=== PATIENT | male | born 1975 | race American Indian/Alaskan Native ===

== ENCOUNTER 2018-04-07 08:53 | Inpatient (IN) | payer MEDICAID ==
[2018-04-07] MEDS ORDERED: Iohexol 240 (50 ml) PO ONE (09:32)
[2018-04-07] MEDS ORDERED: Iohexol 240 (50 ml) ONE (09:39)
[2018-04-07 09:56] LABS: URINE BILIRUBIN NEGATIVE (NEGATIVE); URINE BLOOD NEGATIVE (NEGATIVE); URINE CLARITY Clear (Clear); URINE COLOR Yellow (YELLOW); URINE GLUCOSE (UA) NORMAL (Normal); URINE LEUKOCYTE ESTERASE NEG Leu/uL (Negative); URINE PROTEIN 1+ mg/dL (NEGATIVE)
[2018-04-07 10:02] LABS: BASO # 0.1 K/uL (0.0-0.2); BASO % 0.5 % (0.0-2.0); EOS % 0.2 % (0.0-4.0); HEMOGLOBIN 14.9 g/dL (12.0-18.0); LYMPH # 1.1 K/uL (1.0-4.3); LYMPH % 7.2 % (20.0-40.0); MEAN CELL VOLUME 88.8 fL (80.0-94.0); MEAN CORPUSCULAR HEMOGLOBIN 29.7 pg (27.0-31.0); MEAN CORPUSCULAR HGB CONC 33.5 g/dL (33.0-37.0); MONO # 1.1 K/uL (0.0-0.8); MONO % 7.2 % (0.0-10.0); NEUT # 13.1 K/uL (1.8-7.0); NEUT % 84.9 % (50.0-75.0); PLATELET COUNT 402 K/uL (130-400); RED CELL DISTRIBUTION WIDTH 13.8 % (11.5-14.5); WHITE BLOOD COUNT 15.4 K/uL (4.8-10.8)
--- NOTE | 2018-04-07 10:08 | C.PDOC ---
History Of Present Illness 42 y/o male pt presents to the ER c/o scrotal and abdominal pain for x10 days. Pt was seen at a hospital last night and was treated with pain medication. Pt was also told he had an infection but does not know the name. Pt was waiting for the pain to get better but it got worse which prompted him to go to [facility]. Pt denies penile discharge, blood in urine, nausea, vomiting, diarrhea and fever. Time Seen by Provider: 04/07/18 09:21 Chief Complaint (Nursing): Groin Pain History Per: Patient History/Exam Limitations: no limitations Onset/Duration Of Symptoms: Days (x10 ) Past Medical History Reviewed: Historical Data, Nursing Documentation, Vital Signs Vital Signs: Last Vital Signs Temp 98.9 F 04/07/18 09:07 Pulse 101 H 04/07/18 09:07 Resp 20 04/07/18 09:07 BP 157/88 H 04/07/18 09:07 Pulse Ox 97 04/07/18 09:07 Family History: States: No Known Family Hx - Social History Hx Alcohol Use: Yes Hx Substance Use: No - Immunization History Hx Tetanus Toxoid Vaccination: No Hx Influenza Vaccination: No Hx Pneumococcal Vaccination: No Review Of Systems Except As Marked, All Systems Reviewed And Found Negative. Constitutional: Negative for: Fever Gastrointestinal: Positive for: Abdominal Pain. Negative for: Nausea, Vomiting, Diarrhea Genitourinary: Positive for: Scrotal Pain. Negative for: Hematuria, Penile Discharge Physical Exam - Physical Exam Appears: Non-toxic, No Acute Distress Skin: Warm, Dry, No Rash Head: Normacephalic Eye(s): bilateral: Normal Inspection Chest: Symmetrical Cardiovascular: Rhythm Regular Respiratory: Normal Breath Sounds Gastrointestinal/Abdominal: Soft, Tenderness (suprapubic ), No Distention, No Guarding, No Rebound Back: No CVA Tenderness Male Genital: No Testicular Tenderness, Other (scrotal tenderness ) Extremity: Normal ROM (x4), No Tenderness, No Calf Tenderness, No Deformity, No Swelling Neurological/Psych: Oriented x3, Normal Speech, Normal Cognition, Normal Motor, Normal Sensation ED Course And Treatment - Laboratory Results Result Diagrams: 04/08/18 11:00 04/08/18 11:00 Lab Results: Urine Color Yellow (YELLOW) 04/07/18 09:48 Urine Clarity Clear (Clear) 04/07/18 09:48 Urine pH 5.0 (5.0-8.0) 04/07/18 09:48 Ur Specific [place] 1.021 (1.003-1.030) 04/07/18 09:48 Urine Protein 1+ mg/dL (NEGATIVE) H 04/07/18 09:48 Urine Glucose (UA) Normal mg/dL (Normal) 04/07/18 09:48 Urine Ketones Negative mg/dL (NEGATIVE) 04/07/18 09:48 Urine Blood Negative (NEGATIVE) 04/07/18 09:48 Urine Nitrate Negative (NEGATIVE) 04/07/18 09:48 Urine Bilirubin Negative (NEGATIVE) 04/07/18 09:48 Urine Urobilinogen 4.0 mg/dL (0.2-1.0) 04/07/18 09:48 Ur Leukocyte Esterase Neg Noemi/uL (Negative) 04/07/18 09:48 Urine WBC (Auto) 2 /hpf (0-5) 04/07/18 09:48 Urine RBC (Auto) 2 /hpf (0-3) 04/07/18 09:48 O2 Sat by Pulse Oximetry: 97 (RA) Pulse Ox Interpretation: Normal - CT Scan/US testicular US Other Rad Studies (CT/US): Read By Radiologist, Radiology Report Reviewed CT/US Interpretation: Accession No. : [id number]. Patient Name / ID : IRAIDA FAUSTIN / [id number]. Exam Date : 04/07/2018 10:19:13 ( Approved ). Study Comment : Sex / Age : M / 42Y. Creator : Luz Ibarra MD. Dictator : Luz Ibarra MD. Virtual Customer Assistant : Call Center Agent : Luz Ibarra MD. Approver2 : Report Date : 04/07/2018 10:42:22. My Comment : . Date of service: 04/07/2018. HISTORY: testicular pain. TECHNIQUE: Realtime sonography through the scrotum with color and doppler flow. COMPARISON: None Available. FINDINGS: RIGHT TESTICLE: Measures 4.1 x 2.3 x 3.2 cm. Homogeneous echotexture. 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 Blood flow is demonstrated. RIGHT EPIDIDYMIS: Unremarkable. LEFT TESTICLE: Measures 4.3 x 1.9 x 3.0 cm. Homogeneous echotexture. Blood flow is demonstrated. LEFT EPIDIDYMIS: Unremarkable. HYDROCELE: Small bilateral, left greater right, complex hydroceles. VARICOCELE: Mild left sided varicocele. OTHER FINDINGS: None. 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 Small bilateral, left greater right, complex hydroceles. Mild left sided varicocele. abd/pelvis CT Other Rad Studies (CT/US): Read By Radiologist, Radiology Report Reviewed CT/US Interpretation: Accession No. : [id number]. Patient Name / ID : IRAIDA FAUSTIN / [id number]. Exam Date : 04/07/2018 11:57:54 ( Approved ). Study Comment : Sex / Age : M / 42Y. Creator : Usha Shultz. Dictator : Gianni De Souza MD. Virtual Customer Assistant : Call Center Agent : Gianni De Souza MD. Approver2 : Report Date : 04/07/2018 12:09:19. My Comment : . Date of service: 2018-04-07 11:57:54. PROCEDURE: CT Abdomen and Pelvis . HISTORY: Abdominal pain. COMPARISON: No prior study available for comparison. TECHNIQUE: Contiguous axial images of the abdomen and pelvis performed following oral and intravenous injection of approximately 100 cc Visipaque 320 contrast material. Additional 2D sagittal and coronal reformats generated. . Radiation dose: Total exam DLP = 1033.2 mGy-cm. This CT exam was performed using one or more of the following dose reduction techniques: Automated exposure control, adjustment of the mA and/or kV according to patient size, and/or use of iterative r econstruction technique. FINDINGS: LOWER THORAX: Lung bases are clear. No infiltrate effusion or basilar pneumothorax. No obvious parenchymal nodule seen the visualized lung bases. Heart size within range of normal. No significant pericardial effusion. There is a tiny hiatal hernia. LIVER: Liver is upper limits of normal measuring over 18 cm in CC dimension. The suspect minor fatty hepatic infiltration. There are several low-attenuation foci seen scattered about the right and left lobes of the liver, the largest in the right lobe measuring approximately 8 mm with Hounsfield units registering in the single digits consistent with small cyst. The largest lesion in the inferior aspect left lobe measures approximately 11 mm though exhibits Hounsfield units in the mid double mid 20s. Findings could represent hyperdense cyst or small hemangioma. Follow-up at short interval recommended to assess stability and exclude other pathology such as metastatic disease.. There are few smaller low- attenuation foci also scattered throughout the right and left lobes. Portal and splenic veins are opacified. GALLBLADDER AND BILE DUCTS: Gallbladder is physiologically distended. No evidence of intraluminal gallbladder calculi. PANCREAS: Unremarkable. No mass. No ductal dilatation. SPLEEN: Unremarkable. No splenomegaly. ADRENALS: No adrenal lesions. KIDNEYS AND URETERS: Kidneys demonstrate symmetric nephrograms. No evidence of nephrolithiasis or hydronephrosis. No renal masses or collections.. BLADDER: The urinary bladder is incompletely distended which in part accounts for thick-walled appearance however muscular hypertrophy presumably contributes. Correlation with urinalysis recommended to exclude cystitis. REPRODUCTIVE: Unremarkable. APPENDIX: Appendix is not positively identified on this exam therefore clinical correlation recommended. BOWEL: Evaluation of the bowel is somewhat limited due to incomplete opacification.. Stomach is distended with oral contrast material and air. There are several loops of small bowel in the upper and mid abdomen which exhibit mild wall thickening of; rule out enteritis however no evidence of acute mechanical bowel obstruction with oral contrast material extending into the cecum to the level of the hepatic flexure region.. Large localized area of marked wall thickening involving the distal descending/sigmoid colon junction with the mild infiltration changes in the adjacent mesentery. These findings are of uncertain etiology though could differential diagnosis would include a acute diverticulitis or possibly a localized colitis however of a malignancy must be excluded. Follow-up colonoscopy is recommended. Questionable wall thickening of the cecum versus incomplete distension peristalsis and unopacified bowel. PERITONEUM: No gross free intraperitoneal air. No free or loculated fluid collections. LYMPH NODES: Unremarkable. No enlarged lymph nodes. VASCULATURE: Unremarkable. No aortic aneurysm. No aortic atherosclerotic calcification or mural plaque present. BONES: No fracture or destructive lesion. OTHER FINDINGS: None. IMPRESSION: Large localized area of marked wall thickening involving the distal descending/sigmoid colon junction with the mild infiltration changes in the adjacent mesentery. These findings are of uncertain etiology though could differential diagnosis would include a acute diverticulitis or possibly a localized colitis however of a malignancy must be excluded. Follow-up colonoscopy is recommended. Questionable wall thickening of the cecum versus incomplete distension peristalsis and unopacified bowel. These findings discussed with Dr. Florez at 12:45 p.m. with written down and read back verification. Borderline hepatomegaly. Few small low-attenuation foci scattered throughout the hepatic parenchyma the largest in the right lobe on consistent with cyst. The largest in the left lobe exhibits Hounsfield units in the mid and upper 20s which could represent hyperdense cyst or hemangioma. Follow-up interval recommended to assess stability. Medical Decision Making Medical Decision Making: Plans: -- chem labs -- blood work -- testicular US -- omnipaque -- toradol Disposition - Disposition Disposition: HOSPITALIZED Disposition Time: 12:57 Condition: FAIR - Clinical Impression Clinical Impression: Acute diverticulitis - Scribe Statement The provider has reviewed the documentation as recorded by the Mitch Cummings Do Provider Attestation: All medical record entries made by the Oliveibsaulo were at my direction and personally dictated by me. I have reviewed the chart and agree that the record accurately reflects my personal performance of the history, physical exam, medical decision making, and the department course for this patient. I have also personally directed, reviewed, and agree with the discharge instructions and disposition.
[2018-04-07 10:12] LABS: ALB/GLOB RATIO 1.2 (1.0-2.1); ALBUMIN 4.2 g/dL (3.5-5.0); ALT/SGPT 41 U/L (21-72); AST/SGOT 28 U/L (17-59); BLOOD UREA NITROGEN 11 mg/dL (9-20); CALCIUM 9.2 mg/dl (8.6-10.4); GFR NON-AFRICAN AMERICAN > 60
[2018-04-07 10:15] LABS: INR 1.4
[2018-04-07 10:43] LABS: BANDS 1 % (0-2); LYMPHOCYTE 5 % (20-40); MONOCYTE 5 % (0-10); NEUTROPHIL 89 % (50-75); PLATELET ESTIMATE NORMAL (NORMAL); TOTAL CELLS COUNTED 100
--- NOTE | 2018-04-07 10:45 | US ---
Date of service: 04/07/2018 HISTORY: testicular pain TECHNIQUE: Realtime sonography through the scrotum with color and doppler flow. COMPARISON: None Available. FINDINGS: RIGHT TESTICLE: Measures 4.1 x 2.3 x 3.2 cm. Homogeneous echotexture. 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 Blood flow is demonstrated. RIGHT EPIDIDYMIS: Unremarkable. LEFT TESTICLE: Measures 4.3 x 1.9 x 3.0 cm. Homogeneous echotexture. Blood flow is demonstrated. LEFT EPIDIDYMIS: Unremarkable. HYDROCELE: Small bilateral, left greater right, complex hydroceles. VARICOCELE: Mild left sided varicocele. OTHER FINDINGS: None. 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 Small bilateral, left greater right, complex hydroceles. Mild left sided varicocele.
[2018-04-07] MEDS ORDERED: Iodixanol 320 MG/ML 100 ML BOTTLE IV ONE (11:21)
[2018-04-07] MEDS ORDERED: Morphine 4 MG/ML VIAL ONE ×2 (11:23→13:34)
--- NOTE | 2018-04-07 12:51 | CT ---
Date of service: 2018-04-07 11:57:54 PROCEDURE: CT Abdomen and Pelvis . HISTORY: Abdominal pain COMPARISON: No prior study available for comparison. TECHNIQUE: Contiguous axial images of the abdomen and pelvis performed following oral and intravenous injection of approximately 100 cc Visipaque 320 contrast material. Additional 2D sagittal and coronal reformats generated. . Radiation dose: Total exam DLP = 1033.2 mGy-cm. This CT exam was performed using one or more of the following dose reduction techniques: Automated exposure control, adjustment of the mA and/or kV according to patient size, and/or use of iterative reconstruction technique. FINDINGS: LOWER THORAX: Lung bases are clear. No infiltrate effusion or basilar pneumothorax. No obvious parenchymal nodule seen the visualized lung bases. Heart size within range of normal. No significant pericardial effusion. There is a tiny hiatal hernia. LIVER: Liver is upper limits of normal measuring over 18 cm in CC dimension. The suspect minor fatty hepatic infiltration. There are several low-attenuation foci seen scattered about the right and left lobes of the liver, the largest in the right lobe measuring approximately 8 mm with Hounsfield units registering in the single digits consistent with small cyst. The largest lesion in the inferior aspect left lobe measures approximately 11 mm though exhibits Hounsfield units in the mid double mid 20s. Findings could represent hyperdense cyst or small hemangioma. Follow-up at short interval recommended to assess stability and exclude other pathology such as metastatic disease.. There are few smaller low-attenuation foci also scattered throughout the right and left lobes. Portal and splenic veins are opacified. GALLBLADDER AND BILE DUCTS: Gallbladder is physiologically distended. No evidence of intraluminal gallbladder calculi. PANCREAS: Unremarkable. No mass. No ductal dilatation. SPLEEN: Unremarkable. No splenomegaly. ADRENALS: No adrenal lesions. KIDNEYS AND URETERS: Kidneys demonstrate symmetric nephrograms. No evidence of nephrolithiasis or hydronephrosis. No renal masses or collections.. BLADDER: The urinary bladder is incompletely distended which in part accounts for thick-walled appearance however muscular hypertrophy presumably contributes. Correlation with urinalysis recommended to exclude cystitis. REPRODUCTIVE: Unremarkable. APPENDIX: Appendix is not positively identified on this exam therefore clinical correlation recommended. BOWEL: Evaluation of the bowel is somewhat limited due to incomplete opacification.. Stomach is distended with oral contrast material and air. There are several loops of small bowel in the upper and mid abdomen which exhibit mild wall thickening of; rule out enteritis however no evidence of acute mechanical bowel obstruction with oral contrast material extending into the cecum to the level of the hepatic flexure region.. Large localized area of marked wall thickening involving the distal descending/sigmoid colon junction with the mild infiltration changes in the adjacent mesentery. These findings are of uncertain etiology though could differential diagnosis would include a acute diverticulitis or possibly a localized colitis however of a malignancy must be excluded. Follow-up colonoscopy is recommended. Questionable wall thickening of the cecum versus incomplete distension peristalsis and unopacified bowel. PERITONEUM: No gross free intraperitoneal air. No free or loculated fluid collections. LYMPH NODES: Unremarkable. No enlarged lymph nodes. VASCULATURE: Unremarkable. No aortic aneurysm. No aortic atherosclerotic calcification or mural plaque present. BONES: No fracture or destructive lesion. OTHER FINDINGS: None. IMPRESSION: Large localized area of marked wall thickening involving the distal descending/sigmoid colon junction with the mild infiltration changes in the adjacent mesentery. These findings are of uncertain etiology though could differential diagnosis would include a acute diverticulitis or possibly a localized colitis however of a malignancy must be excluded. Follow-up colonoscopy is recommended. Questionable wall thickening of the cecum versus incomplete distension peristalsis and unopacified bowel. These findings discussed with Dr. Florez at 12:45 p.m. with written down and read back verification. Borderline hepatomegaly. Few small low-attenuation foci scattered throughout the hepatic parenchyma the largest in the right lobe on consistent with cyst. The largest in the left lobe exhibits Hounsfield units in the mid and upper 20s which could represent hyperdense cyst or hemangioma. Follow-up interval recommended to assess stability.
[2018-04-07] MEDS ORDERED: metroNIDAZOLE IV 500 mg/100 ml 500 MG/100 ML BAG IVPB STA (12:55)
[2018-04-07] MEDS ORDERED: Ciprofloxacin 400mg/200ml D5W 400 MG/200 ML BAG IVPB STA (12:55)
[2018-04-07] MEDS ORDERED: Morphine 4 MG/ML VIAL IV ONE (13:26)
[2018-04-07] MEDS ORDERED: metroNIDAZOLE IV 500 mg/100 ml 500 MG/100 ML BAG ONE (13:45)
[2018-04-07] MEDS: Ciprofloxacin 200mg/100ml D5W 100 ML IVPB SCH (17:28)
[2018-04-07] MEDS ORDERED: Potassium Chloride 20 mEq ER Tab PO ONE (18:00)
[2018-04-07] MEDS: Morphine 4 MG/ML VIAL IVP PRN ×2 (19:00→23:17)
[2018-04-07] MEDS: metroNIDAZOLE IV 500 mg/100 ml 500 MG/100 ML BAG IVPB SCH (19:00)
--- NOTE | 2018-04-07 21:27 | CP.PCM.HP ---
Present on Admission - Present on Admission Any Indicators Present on Admission: No Past Patient History - Past Medical History & Family History Past Medical History?: No - Past Social History Smoking Status: Light Smoker < 10 Cigarettes Daily - MUSCULOSKELETAL/RHEUMATOLOGICAL Hx Falls: No - PSYCHIATRIC Hx Substance Use: Yes - SURGICAL HISTORY Hx Surgeries: No - ANESTHESIA Hx Anesthesia: No Meds Allergies/Adverse Reactions: Allergies Allergy/AdvReac Type Severity Reaction Status Date / Time No Known Allergies Allergy Verified 04/07/18 09:07 Results - Vital Signs Recent Vital Signs: Last Vital Signs Temp 98.2 F 04/07/18 15:15 Pulse 97 H 04/07/18 15:15 Resp 20 04/07/18 15:15 BP 129/83 04/07/18 15:15 Pulse Ox 96 04/07/18 15:15 - Labs Result Diagrams: 04/07/18 09:57 04/07/18 09:57 Labs: Laboratory Results - last 24 hr 04/07/18 04/07/18 04/07/18 09:48 09:57 09:57 WBC 15.4 H RBC 5.00 Hgb 14.9 Hct 44.3 MCV 88.8 MCH 29.7 MCHC 33.5 RDW 13.8 Plt Count 402 H MPV 7.0 L Neut % (Auto) 84.9 H Lymph % (Auto) 7.2 L Humphreys % (Auto) 7.2 Eos % (Auto) 0.2 Baso % (Auto) 0.5 Neut # (Auto) 13.1 H Lymph # (Auto) 1.1 Humphreys # (Auto) 1.1 H Eos # (Auto) 0.0 Baso # (Auto) 0.1 Neutrophils % (Manual) 89 H Band Neutrophils % 1 Lymphocytes % (Manual) 5 L Monocytes % (Manual) 5 Platelet Estimate Normal RBC Morphology Normal PT 15.0 H INR 1.4 APTT 27 Sodium Potassium Chloride Carbon Dioxide Anion Gap BUN Creatinine Est GFR ( Amer) Est GFR (Non-Af Amer) Random Glucose Calcium Total Bilirubin AST ALT Alkaline Phosphatase Total Protein Albumin Globulin Albumin/Globulin Ratio Carcinoembryonic Ag CA 19-9 Antigen Urine Color Yellow Urine Clarity Clear Urine pH 5.0 Ur Specific [place] 1.021 Urine Protein 1+ H Urine Glucose (UA) Normal Urine Ketones Negative Urine Blood Negative Urine Nitrate Negative Urine Bilirubin Negative Urine Urobilinogen 4.0 Ur Leukocyte Esterase Neg Urine WBC (Auto) 2 Urine RBC (Auto) 2 04/07/18 04/07/18 09:57 19:29 WBC RBC Hgb Hct MCV MCH MCHC RDW Plt Count MPV Neut % (Auto) Lymph % (Auto) Humphreys % (Auto) Eos % (Auto) Baso % (Auto) Neut # (Auto) Lymph # (Auto) Humphreys # (Auto) Eos # (Auto) Baso # (Auto) Neutrophils % (Manual) Band Neutrophils % Lymphocytes % (Manual) Monocytes % (Manual) Platelet Estimate RBC Morphology PT INR APTT Sodium 139 Potassium 3.3 L Chloride 98 Carbon Dioxide 33 H Anion Gap 12 BUN 11 Creatinine 1.0 Est GFR ( Amer) > 60 Est GFR (Non-Af Amer) > 60 Random Glucose 138 H Calcium 9.2 Total Bilirubin 0.6 AST 28 ALT 41 Alkaline Phosphatase 120 Total Protein 7.7 Albumin 4.2 Globulin 3.5 Albumin/Globulin Ratio 1.2 Carcinoembryonic Ag 3.3 H CA 19-9 Antigen < 1.4 Urine Color Urine Clarity Urine pH Ur Specific [place] Urine Protein Urine Glucose (UA) Urine Ketones Urine Blood Urine Nitrate Urine Bilirubin Urine Urobilinogen Ur Leukocyte Esterase Urine WBC (Auto) Urine RBC (Auto)
[2018-04-08] MEDS: metroNIDAZOLE IV 500 mg/100 ml 500 MG/100 ML BAG IVPB SCH ×3 (02:02→19:23)
[2018-04-08] MEDS: Morphine 4 MG/ML VIAL IVP PRN (03:30)
[2018-04-08] MEDS: Ciprofloxacin 200mg/100ml D5W 100 ML IVPB SCH ×2 (05:22→19:22)
--- NOTE | 2018-04-08 07:58 | HP ---
CHIEF COMPLAINT: Abdominal pain for 10 days. HISTORY OF PRESENT ILLNESS: This is a 42-year-old male, with no significant past medical history, and he came in 10 days ago. He has abdominal pain and also scrotal pain, and last night, he came to emergency room, he was given pain medication, and he was also told that he has some kind of infection which and he went home and he tried his medication with no response, and he came back to emergency room. He denies any discharge from penis. He denies any rash under penis or any skin rash. He has abdominal pain, flank pain, and frequent urination. There is nausea. No vomiting. No diarrhea. No fever, no chills. The patient denies any chest pain, palpitation, weakness, or dizziness. He denies any cough, sore throat, or runny nose. He denies any hip pain, back pain. He denies any tingling, numbness, paraesthesia. PAST MEDICAL HISTORY: Nothing significant. SOCIAL HISTORY: He smokes. Social alcohol user. FAMILY HISTORY: Negative for colon cancer. PHYSICAL EXAMINATION: GENERAL: A middle-aged male, in distress with pain. VITAL SIGNS: Blood pressure 157/88, pulse 101, respiratory rate 20, and temperature 98.9. SKIN: He has extensive tattoos. No rashes. No bruises. No purpura. No petechiae. No ecchymosis. HEENT: Atraumatic and normocephalic. Negative pallor. Negative jaundice. Extraocular movements are intact. NECK: Supple. No JVD. No lymph node. No thyromegaly. No carotid bruits. CHEST WALL: Bilateral symmetrical expansion. LUNGS: Clear. No rales. No rhonchi. CARDIOVASCULAR SYSTEM: No heave. No thrill. ABDOMEN: Soft. Nontender. Bowel sounds are positive. There is tenderness in lower abdomen. RECTAL: No tenderness. EXTREMITIES: No clubbing, cyanosis, or edema. CENTRAL NERVOUS SYSTEM: Awake, alert, oriented x3. ASSESSMENT: 1. Abdominal pain, rule out diverticulitis. 2. Urinary tract infection. The patient had abdominal CAT scan with pelvic CAT scan as well, and the patient has borderline hepatomegaly. The patient has cysts in the liver, and the patient has thickening of the colon wall which is suggestive of possibility of diverticulitis versus colitis. PLAN: Admit. Detailed orders are written. Seen and examined. The patient needs IV antibiotics. The patient can have full liquid diet. The patient will need a GI evaluation and most likely antibiotics will improve his symptoms. Ian Jane MD
[2018-04-08] MEDS ORDERED: Phytonadione 10 mg/ml Inj (Adult) SC STA (08:25)
[2018-04-08] MEDS: Enoxaparin 40 mg Syringe SC SCH (09:56)
[2018-04-08 11:10] LABS: BASO # 0.1 K/uL (0.0-0.2); BASO % 0.7 % (0.0-2.0); EOS # 0.1 K/uL (0.0-0.7); EOS % 0.7 % (0.0-4.0); HEMOGLOBIN 13.9 g/dL (12.0-18.0); LYMPH # 1.4 K/uL (1.0-4.3); LYMPH % 14.5 % (20.0-40.0); MEAN CELL VOLUME 88.5 fL (80.0-94.0); MEAN CORPUSCULAR HGB CONC 33.9 g/dL (33.0-37.0); MEAN PLATELET VOLUME 7.2 fL (7.2-11.7); MONO # 0.8 K/uL (0.0-0.8); MONO % 8.1 % (0.0-10.0); NEUT # 7.6 K/uL (1.8-7.0); RBC 4.62 Mil/uL (4.40-5.90); RED CELL DISTRIBUTION WIDTH 13.5 % (11.5-14.5)
[2018-04-08 11:25] LABS: ALB/GLOB RATIO 1.1 (1.0-2.1); ALBUMIN 3.4 g/dL (3.5-5.0); ALT/SGPT 53 U/L (21-72); AST/SGOT 30 U/L (17-59); BLOOD UREA NITROGEN 10 mg/dL (9-20); CALCIUM 8.8 mg/dl (8.6-10.4); GFR NON-AFRICAN AMERICAN > 60
--- NOTE | 2018-04-08 13:54 | PN ---
DATE: 04/08/2018 LOCATION: 659, bed A. SUBJECTIVE: This is a 42-year-old male seen initially for GI consultation on 04/07/2018, reexamined again today with persistent complaint of abdominal pain, but anyhow less than before with recurrent bloody bowel movement. The entire chart is reviewed including, but not limited to recent lab and radiology study results, current and previous medications list, current and previous medical events. Case discussed with the staff at length. Today's lab results are still pending. However, the patient CEA level is still elevated at 3.3. PHYSICAL EXAMINATION: GENERAL: A 42-year-old male, afebrile with a complaint of nausea and dyspepsia. VITAL SIGNS: Afebrile with pulse of 68, respiratory rate 20 to 22, blood pressure of 124/74. HEENT: Showed pale, dry, and oral mucous membrane, nonicteric sclerae. LUNGS: Few scattered crepitation. Decreased air entry at bases. HEART: Positive S1 and S2. ABDOMEN: Soft with mild generalized tenderness. No mass or organomegaly. No rebound tenderness or guarding, but severe generalized tenderness in the mid epigastric and to the right and the left lower quadrant area. EXTREMITIES: Without significant edema, clubbing, or cyanosis. RECTAL: The patient refused. IMPRESSION: 1. Rectal bleeding with abdominal CAT scan of the abdomen and elevated CEA level, to rule out lower gastrointestinal tract occult malignancy versus bleeding diverticula. The possibility of inflammatory bowel disease was raised. 2. Episodes of nausea and vomiting of undetermined etiology with reexacerbation of peptic ulcer disease. SUGGESTIONS: 1. Agree with your plan. 2. Correct underlying coagulopathy. 3. The patient is scheduled for colonoscopy after adequate preparation and when he is more stable clinically. Further recommendation to follow. Andrey Neri MD
[2018-04-09] MEDS: metroNIDAZOLE IV 500 mg/100 ml 500 MG/100 ML BAG IVPB SCH ×3 (01:26→19:22)
[2018-04-09] MEDS: Ciprofloxacin 200mg/100ml D5W 100 ML IVPB SCH ×2 (05:21→18:00)
[2018-04-09] MEDS ORDERED: Peg-Electrolyte Oral Soln 4L (Golytely) PO ONE (09:00)
[2018-04-09] MEDS: Enoxaparin 40 mg Syringe SC SCH (09:44)
[2018-04-09] MEDS ORDERED: Bisacodyl 5mg EC Tab PO ONE (17:00)
--- NOTE | 2018-04-09 19:07 | CP.PCM.PN ---
Subjective - Date & Time of Evaluation Date of Evaluation: 04/08/18 Time of Evaluation: 10:20 - Subjective Subjective: dictated Objective - Vital Signs/Intake and Output Vital Signs (last 24 hours): Temp Pulse Resp BP Pulse Ox 98.1 F 74 20 140/92 H 95 04/09/18 16:00 04/09/18 16:00 04/09/18 16:00 04/09/18 16:00 04/09/18 16:00 - Medications Medications: Current Medications Acetaminophen (Tylenol 325mg Tab) 650 mg PO Q6 PRN PRN Reason: Fever >100.4 F Last Admin: 04/08/18 00:12 Dose: 650 mg Enoxaparin Sodium (Lovenox) 40 mg SC DAILY [facility] Last Admin: 04/09/18 09:44 Dose: 40 mg Metronidazole (Flagyl) 500 mg in 100 mls @ 100 mls/hr IVPB Q8H DEE DEE; Protocol Last Admin: 04/09/18 09:41 Dose: 100 mls/hr Ciprofloxacin (Cipro 200mg/100ml D5w) 100 mls @ 67 mls/hr IVPB Q12H DEE DEE; Protocol Last Admin: 04/09/18 05:21 Dose: 67 mls/hr Metoclopramide HCl (Reglan) 5 mg IVP Q6H DEE DEE Last Admin: 04/09/18 14:12 Dose: 5 mg Morphine Sulfate (Morphine) 2 mg IVP Q4 PRN PRN Reason: Pain, moderate (4-7) Last Admin: 04/08/18 03:30 Dose: 2 mg Ondansetron HCl (Zofran Inj) 4 mg IVP Q8 PRN PRN Reason: Nausea/Vomiting Pantoprazole Sodium (Protonix Inj) 40 mg IVP DAILY [facility] Last Admin: 04/09/18 11:56 Dose: 40 mg - Labs Labs: 04/08/18 11:00 04/08/18 11:00 PT 15.0 SECONDS (9.7-12.2) H 04/07/18 09:57 INR 1.4 04/07/18 09:57 APTT 27 SECONDS (21-34) 04/07/18 09:57
--- NOTE | 2018-04-09 19:07 | CP.PCM.PN ---
Subjective - Date & Time of Evaluation Date of Evaluation: 04/09/18 Time of Evaluation: 10:20 - Subjective Subjective: dictated Objective - Vital Signs/Intake and Output Vital Signs (last 24 hours): Temp Pulse Resp BP Pulse Ox 98.1 F 74 20 140/92 H 95 04/09/18 16:00 04/09/18 16:00 04/09/18 16:00 04/09/18 16:00 04/09/18 16:00 - Medications Medications: Current Medications Acetaminophen (Tylenol 325mg Tab) 650 mg PO Q6 PRN PRN Reason: Fever >100.4 F Last Admin: 04/08/18 00:12 Dose: 650 mg Enoxaparin Sodium (Lovenox) 40 mg SC DAILY [facility] Last Admin: 04/09/18 09:44 Dose: 40 mg Metronidazole (Flagyl) 500 mg in 100 mls @ 100 mls/hr IVPB Q8H DEE DEE; Protocol Last Admin: 04/09/18 09:41 Dose: 100 mls/hr Ciprofloxacin (Cipro 200mg/100ml D5w) 100 mls @ 67 mls/hr IVPB Q12H DEE DEE; Protocol Last Admin: 04/09/18 05:21 Dose: 67 mls/hr Metoclopramide HCl (Reglan) 5 mg IVP Q6H DEE DEE Last Admin: 04/09/18 14:12 Dose: 5 mg Morphine Sulfate (Morphine) 2 mg IVP Q4 PRN PRN Reason: Pain, moderate (4-7) Last Admin: 04/08/18 03:30 Dose: 2 mg Ondansetron HCl (Zofran Inj) 4 mg IVP Q8 PRN PRN Reason: Nausea/Vomiting Pantoprazole Sodium (Protonix Inj) 40 mg IVP DAILY [facility] Last Admin: 04/09/18 11:56 Dose: 40 mg - Labs Labs: 04/08/18 11:00 04/08/18 11:00 PT 15.0 SECONDS (9.7-12.2) H 04/07/18 09:57 INR 1.4 04/07/18 09:57 APTT 27 SECONDS (21-34) 04/07/18 09:57
--- NOTE | 2018-04-09 23:57 | PN ---
DATE: 04/09/2018 SUBJECTIVE: The patient is for colonoscopy in the a.m. He has decreased abdominal pain. No more fever. PHYSICAL EXAMINATION: VITAL SIGNS: Blood pressure 135/84, pulse 92, respiratory rate 20, temperature 98.4. LUNGS: Clear. CARDIOVASCULAR SYSTEM: S1 and S2, regular. ABDOMEN: Soft. ASSESSMENT: 1. Acute diverticulitis versus colitis. Rule out colon neoplasm. 2. Hypertension. 3. Dehydration. PLAN: Endoscopy in the a.m. Monitor the patient. Ian Jane MD
[2018-04-10] MEDS: metroNIDAZOLE IV 500 mg/100 ml 500 MG/100 ML BAG IVPB SCH ×2 (02:34→11:31)
[2018-04-10] MEDS: Ciprofloxacin 200mg/100ml D5W 100 ML IVPB SCH (04:12)
[2018-04-10] MEDS ORDERED: Lactated Ringer's 500 ML IV ONE (08:50)
[2018-04-10 09:34] VITALS: O2SAT 100
[2018-04-10] MEDS ORDERED: Propofol 10 mg/ml Inj (20 ML) ONE ×2 (09:34→10:00)
[2018-04-10] MEDS ORDERED: Lidocaine Hydrochloride 5 ML INJ ONE (09:35)
[2018-04-10] MEDS ORDERED: Glucagon Recombinant 1 mg Inj ONE (09:45)
[2018-04-10] MEDS: Enoxaparin 40 mg Syringe SC SCH (10:00)
[2018-04-10 10:12] VITALS: TEMP 97.9
[2018-04-10 11:33] VITALS: BP 124/81; PULSE 67; RESP 20
--- NOTE | 2018-04-10 15:23 | MRI ---
MRCP Indication: abdominal pain Technique: Multiplanar, multisequence MR images of the abdomen were obtained, including heavily T2 weighted MRCP images of the biliary system. Rotating maximum intensity projection images of the biliary system were generated. A total of 609 images were submitted for review. Patient declined IV contrast or additional imaging. Comparison: CT abdomen and pelvis with contrast performed 04/07/18 Findings: Examination limited by patient motion. The patient declined IV contrast for additional imaging also limiting examination. Several too small to characterize right hepatic lobe T2 hyperintense foci measuring up to 9 mm. The gallbladder appears grossly unremarkable. There is no intrahepatic biliary ductal dilatation. Common bile duct measures approximately 7 mm, minimally dilated. Distal common bile duct filling defects possibly small calculi. The pancreatic duct appears within normal limits of caliber. No filling defects are seen in the common bile duct or pancreatic duct. The limited included noncontrast adrenal glands, kidneys, spleen, and pancreas appear grossly unremarkable. No bulky abdominal lymphadenopathy is seen. No ascites. No acute osseous abnormality is detected. Impression: Common bile duct measures approximately 7 mm, minimally dilated. Distal common bile duct filling defects possibly small calculi. Several too small to characterize (measuring up to 9 mm) right hepatic lobe T2 hyperintense foci within the right hepatic lobe. Absence of IV contrast also precludes further characterization. Examination limited by patient motion. The patient declined IV contrast for additional imaging also limiting examination.
--- NOTE | 2018-04-10 17:06 | CP.PCM.PN ---
Subjective - Date & Time of Evaluation Date of Evaluation: 04/10/18 Time of Evaluation: 12:20 - Subjective Subjective: patient seen today after colonoscopy , denies any abdominal pain, N/V/D , tolerating diet , wants to go home vss and labs reviewed - stable Objective - Vital Signs/Intake and Output Vital Signs (last 24 hours): Temp Pulse Resp BP Pulse Ox 97.9 F 67 20 124/81 100 04/10/18 11:32 04/10/18 11:32 04/10/18 11:32 04/10/18 11:32 04/10/18 10:35 Intake and Output: 04/10/18 04/10/18 06:59 18:59 Intake Total 2500 580 Balance 2500 580 - Labs Labs: 04/08/18 11:00 04/08/18 11:00 PT 15.0 SECONDS (9.7-12.2) H 04/07/18 09:57 INR 1.4 04/07/18 09:57 APTT 27 SECONDS (21-34) 04/07/18 09:57 Assessment and Plan - Assessment and Plan (Free Text) Assessment: A/P 42 yr yr old male admitted for acute diverticulits / colitis started on IV antibiotis and symptoms improved s/p Colonoscopy - see full report for details patient has less abdominal pain and tolerating diet MRCP - ordered and done only without contrast part , patient refused to position for 45 minuts for the contrast part due to shoulder problems Dr. allison cleared patient for discharge D/w DR Jane, cleared for discharge home today and continue cipro and flagy for 5 more days discharge plan discussed with patient , who understands and agrees with plan RX given upon discharge
--- NOTE | 2018-04-10 21:27 | CP.PCM.DIS ---
Provider - Provider Date of Admission: 04/07/18 12:57 Attending physician: Ian Jane MD Consults: 04/07/18 13:13 Physician Consult Routine Comment: Consulting Provider: Andrey Andersen Consulting Physician: Andrey Andersen Reason for Consult: abnormal ct with possible diverticulitis Time Spent in preparation of Discharge (in minutes): 30 Hospital Course - Lab Results Lab Results: Micro Results 04/07/18 13:45 Blood Blood Culture - Preliminary NO GROWTH AFTER 3 DAYS 04/07/18 13:15 Blood Blood Culture - Preliminary NO GROWTH AFTER 3 DAYS 04/07/18 09:48 Urine Random Urine Culture - Final No Growth (<1,000 CFU/ML) Most Recent Lab Values WBC 10.0 K/uL (4.8-10.8) 04/08/18 11:00 RBC 4.62 Mil/uL (4.40-5.90) 04/08/18 11:00 Hgb 13.9 g/dL (12.0-18.0) 04/08/18 11:00 Hct 40.9 % (35.0-51.0) 04/08/18 11:00 MCV 88.5 fL (80.0-94.0) 04/08/18 11:00 MCH 30.0 pg (27.0-31.0) 04/08/18 11:00 MCHC 33.9 g/dL (33.0-37.0) 04/08/18 11:00 RDW 13.5 % (11.5-14.5) 04/08/18 11:00 Plt Count 372 K/uL (130-400) 04/08/18 11:00 MPV 7.2 fL (7.2-11.7) 04/08/18 11:00 Neut % (Auto) 76.0 % (50.0-75.0) H 04/08/18 11:00 Lymph % (Auto) 14.5 % (20.0-40.0) L 04/08/18 11:00 [place] % (Auto) 8.1 % (0.0-10.0) 04/08/18 11:00 Eos % (Auto) 0.7 % (0.0-4.0) 04/08/18 11:00 Baso % (Auto) 0.7 % (0.0-2.0) 04/08/18 11:00 Neut # (Auto) 7.6 K/uL (1.8-7.0) H 04/08/18 11:00 Lymph # (Auto) 1.4 K/uL (1.0-4.3) 04/08/18 11:00 [place] # (Auto) 0.8 K/uL (0.0-0.8) 04/08/18 11:00 Eos # (Auto) 0.1 K/uL (0.0-0.7) 04/08/18 11:00 Baso # (Auto) 0.1 K/uL (0.0-0.2) 04/08/18 11:00 Neutrophils % (Manual) 89 % (50-75) H 04/07/18 09:57 Band Neutrophils % 1 % (0-2) 04/07/18 09:57 Lymphocytes % (Manual) 5 % (20-40) L 04/07/18 09:57 Monocytes % (Manual) 5 % (0-10) 04/07/18 09:57 Platelet Estimate Normal (NORMAL) 04/07/18 09:57 RBC Morphology Normal 04/07/18 09:57 PT 15.0 SECONDS (9.7-12.2) H 04/07/18 09:57 INR 1.4 04/07/18 09:57 APTT 27 SECONDS (21-34) 04/07/18 09:57 Sodium 135 mmol/L (132-148) 04/08/18 11:00 Potassium 3.9 mmol/L (3.6-5.2) 04/08/18 11:00 Chloride 100 mmol/L (98-107) 04/08/18 11:00 Carbon Dioxide 28 mmol/L (22-30) 04/08/18 11:00 Anion Gap 11 (10-20) 04/08/18 11:00 BUN 10 mg/dL (9-20) 04/08/18 11:00 Creatinine 0.9 mg/dL (0.8-1.5) 04/08/18 11:00 Est GFR ( Amer) > 60 04/08/18 11:00 Est GFR (Non-Af Amer) > 60 04/08/18 11:00 Random Glucose 130 mg/dL (75-110) H 04/08/18 11:00 Calcium 8.8 mg/dl (8.6-10.4) 04/08/18 11:00 Total Bilirubin 0.7 mg/dL (0.2-1.3) 04/08/18 11:00 AST 30 U/L (17-59) 04/08/18 11:00 ALT 53 U/L (21-72) 04/08/18 11:00 Alkaline Phosphatase 105 U/L (38-126) 04/08/18 11:00 Total Protein 6.6 g/dL (6.3-8.3) 04/08/18 11:00 Albumin 3.4 g/dL (3.5-5.0) L 04/08/18 11:00 Globulin 3.2 gm/dL (2.2-3.9) 04/08/18 11:00 Albumin/Globulin Ratio 1.1 (1.0-2.1) 04/08/18 11:00 Carcinoembryonic Ag 3.3 ng/mL (0-3.0) H 04/07/18 19:29 CA 19-9 Antigen < 1.4 U/mL (0-37) 04/07/18 19:29 Urine Color Yellow (YELLOW) 04/07/18 09:48 Urine Clarity Clear (Clear) 04/07/18 09:48 Urine pH 5.0 (5.0-8.0) 04/07/18 09:48 Ur Specific [place] 1.021 (1.003-1.030) 04/07/18 09:48 Urine Protein 1+ mg/dL (NEGATIVE) H 04/07/18 09:48 Urine Glucose (UA) Normal mg/dL (Normal) 04/07/18 09:48 Urine Ketones Negative mg/dL (NEGATIVE) 04/07/18 09:48 Urine Blood Negative (NEGATIVE) 04/07/18 09:48 Urine Nitrate Negative (NEGATIVE) 04/07/18 09:48 Urine Bilirubin Negative (NEGATIVE) 04/07/18 09:48 Urine Urobilinogen 4.0 mg/dL (0.2-1.0) 04/07/18 09:48 Ur Leukocyte Esterase Neg Noemi/uL (Negative) 04/07/18 09:48 Urine WBC (Auto) 2 /hpf (0-5) 04/07/18 09:48 Urine RBC (Auto) 2 /hpf (0-3) 04/07/18 09:48 Discharge Plan - Discharge Medications Prescriptions: Ciprofloxacin HCl [Cipro] 500 mg PO BID #10 tablet Metronidazole [Flagyl] 500 mg PO Q8 #15 tablet - Follow Up Plan Condition: FAIR Disposition: HOME/ ROUTINE Instructions: Ciprofloxacin (Systemic), Colonoscopy (DC), Metronidazole (Sy stemic), Diverticulitis (DC) Additional Instructions: Please follow up with Dr. Jane office in 1 week Please continue medication as per med. rec Referrals: Ian Jane MD [Staff Provider] -
--- NOTE | 2018-04-12 03:57 | DS ---
DISCHARGE DIAGNOSES: 1. Acute diverticulitis. 2. Anemia due to gastrointestinal bleed. 3. Dehydration. 4. Obesity. HISTORY OF PRESENT ILLNESS: This is a 42-year-old male who came in because of abdominal pain, fever, and found to have colon inflammation. The patient was started on antibiotics. The patient became afebrile. She felt better, and the patient is for discharge. PHYSICAL EXAMINATION: VITAL SIGNS: Blood pressure 124/81, pulse 67, respiratory rate 20, temperature 97.9, afebrile. LUNGS: Clear. CARDIOVASCULAR SYSTEM: S1, S2, regular. ABDOMEN: Soft. PLAN: Discharge the patient. Monitor the patient. Ian Jane MD
== END 2018-04-10 15:39 | disposition home or self-care (01) | DRG 182 ==
LOC: EDBD 08:53 → C.ER 08:53 → C.9E 12:57 → C.6T 13:48
PROVIDERS: ADMIT Internal Medicine; ATTEND Internal Medicine
PROC: 0DBM8ZX Excision of Descending Colon, Via Natural or Artificial Opening Endoscopic, Diagnostic (ICD-10-PCS; principal; 2018-04-10 09:35)
DX: K57.92 Diverticulitis of intestine, part unspecified, without perforation or abscess without bleeding (principal); D50.0 Iron deficiency anemia secondary to blood loss (chronic); K92.2 Gastrointestinal hemorrhage, unspecified; E86.0 Dehydration; E66.9 Obesity, unspecified; F17.210 Nicotine dependence, cigarettes, uncomplicated; I10 Essential (primary) hypertension; K52.9 Noninfective gastroenteritis and colitis, unspecified; K76.89 Other specified diseases of liver; K27.3 Acute peptic ulcer, site unspecified, without hemorrhage or perforation; D68.9 Coagulation defect, unspecified; K58.9 Irritable bowel syndrome, unspecified